=== PATIENT | female | born 1990 | race American Indian/Alaskan Native ===

== ENCOUNTER 2019-11-03 13:43 | Inpatient (IN) | payer BC ==
--- NOTE | 2019-11-03 15:00 | PCM.LDHP ---
L&D History of Present Illness - General Date of Service: 11/03/19 Admit Problem/Dx: Patient Status Order with Admit Dx/Problem 11/03/19 13:51 Patient Status [ADT] Routine Admission Diagnosis/Problem Admission Diagnosis/Problem 11/03/19 15:00 Jessica is a 29-year-old 4 para 1112 female who is admitted to labor and delivery in early labor. She has an YOUSUF of 11/20/2019 by a certain last menstrual period which started on 02/13/2019. She did however have an early ultrasound at on 04/03/2019 which placed her at 6-1/7 weeks gestational age and gave her a due date of 11/26/2019. Ultrasound dating she is 36-6/7 weeks gestational age at the time of this admission. Source of Information: Patient History Limitations: Reports: No Limitations - History of Present Illness Introduction:: Jessica is a 29-year-old 4 para 1112 female who is admitted to labor and delivery in early labor. She has an YOUSUF of 11/20/2019 by a certain last menstrual period which started on 02/13/2019. She did however have an early ultrasound at on 04/03/2019 which placed her at 6-1/7 weeks gestational age and gave her a due date of 11/26/2019. Ultrasound dating she is 36-6/7 weeks gestational age at the time of this admission.She began checo during the course of yesterday last evening. These contractions persisted and during the night of 11/02/2019 she came in to L&D for evaluation. She was irregularly checo at that time but only changed her cervix minimally throughout the course of the night and was discharged to her family's home here in [place]. As returned and was appears to be full-blown labor with contractions every 3-4 minutes, intense with patient having to breathe through them. Cervix is not changed from 2 cm to 4 cm, 80% effaced, bulging bag of garza, vertex presentation, very soft, mid position to anterior position. heart tones are reassuring. 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 Patient had menarche at age 15. Cycles every 28-30 days. Patient had a last menstrual on 02/13/2019 onset on not using any control time conception. Her previous pregnancies have included the followin. Spontaneous miscarriage 10/09/2014 at 10 weeks gestational age she with Cytotec 2. Male born 09/09/2015 at 38 weeks gestational agenormal spontaneous vaginal deliveryepidural nAgel Carmona's name is twyla. 3. Male infant born 08/26/2017 at 36 weeks gestational age after 16 hours of labor. 6 lbs. 11 oz. male born via spontaneous vaginal deliveryepidural Angel Ruvalcaba history of labor and preeclampsia 36 weeks. Child' s name is Abiel. course. Patient's initial visit was early in the at 6 weeks and 1 day at [facility]. She had an ultrasound at that time which showed her YOUSUF to be 11/26/2019. She is seen here for first visit at 16-1/7 weeks gestational age. The course of her care she has had no evidence of preeclampsia. She was started on baby aspirin to reduce risk of preeclampsia. Signs remained stable throughout her course. Her weight gain was from a pre- weight of 146 pounds to 166.4 pounds for a 20 pound increase. Fundal height growth was appropriate. Patient is group B strep negative. Platelets have been a low with evaluation most recently performed on all 24/01/2019 with a count of 124,000. Patient is desiring epidural in labor and delivery. She declined genetic evaluation. Her [place] depression screening score on 09/26/2019 was 5/30. GTT was mildly elevated at 136. Patient declined 3 hour GTT. Patient plans to breast- feed. History of preeclampsia with last resulted in recommendation and therapy with baby aspirin daily. Laboratory testing: Blood is O+ with negative screen. Initial hemoglobin was 12.9 g/dL. Platelets were 211,000. She is rubella immune. RPR is nonreactive. Hepatitis B surface antigen and HIV assays were both negative. Chlamydia and gonorrhea negative. Second trimester labs showed hemoglobin 11.3 g/dL and platelets of 151,000. Her diabetes test as reported above was 136. On 2018 and her RPR was nonreactive. Group B strep screen is negative. Allergies: Seasonal allergies only no known drug allergies. Medications: 1. Baby aspirin 81 mg by mouth daily chewable tablet 2. vitamins 1 daily 3. Ferrous sulfate 325 mg by mouth daily 4. Vitamin C-oral tablet chewable daily 5. Tylenol No. 3 when necessary for pain. Past medical history: 1. Miscarriage 1 2. 2 3. Gastroesophageal reflux disease. 4. History of preeclampsia with last 5. History of labor Past surgical history: 1. History of patent ductus arteriosusrepaired in 2001has occasional murmurs. 2. TNA 2002 3. Appendectomy 2007 4. Finger surgery 2008 5. Jaw surgery 2011 Family history: Father baby sister has Down syndrome. Father baby sister and her children are carriers for cystic fibrosis.Mother and father are alive and well. 2 brothers and 1 sister alive and well. Maternal grandmother is alive with diabetes. Maternal grandfather is alive with diabetes and parkinsonism. Paternal grandmother has a history of hypercholesterolemia. Paternal grandfather is alive with MIs 2. No bleeding, clotting, anesthesia or problems noted in the family. Social history: Patient is single. She lives in [facility]. She does not use any significant most alcohol, drugs or tobacco. Nursing nurse. Boyfriend 's name is Durga. Review of systems: Patient is making concern is increased intensity and frequency of contractions. Skin: Negative Lungs: No infectious symptoms or shortness of breath Cardiovascular: No chest pain or exercise intolerance Breasts: changes. GI: Negative : Body habitus changes associated with Musculoskeletal: Negative Neurological: Negative In general the patient is well-developed, well-nourished, pleasant female of stated age in moderate distress secondary to labor pain. Skin is warm dry without lesions. HEENT, neck and back within normal limits. Lungs are clear with good breath sounds in all lung cisneros. Cardiovascular exam shows regular and rhythm without murmurs. Abdomen is gravid with last fundal height in clinic at 36+ centimeters. Baby in vertex presentation. Genital exam per digital shows 4 cm dilated, 80% effacement, soft, -3 station, bulging bag of garza, mid position. Extremities and neurological exam are grossly within normal limits. - Related Data Allergies/Adverse Reactions: Allergies Allergy/AdvReac Type Severity Reaction Status Date / Time No Known Allergies Allergy Verified 11/02/19 21:38 Home Medications: Home Meds Acetaminophen [Tylenol] 650 mg PO 11/02/19 [History] Ascorbic Acid [Vitamin C] 1,000 mg PO 11/02/19 [History] Aspirin 81 mg PO DAILY 11/02/19 [History] Ferrous Sulfate [Iron] 325 mg 11/02/19 [History] Vits #93/Iron Fum/FA [ Formula Tablet] 11/02/19 [History] H&P Review of Systems - Review of Systems: Review Of Systems: See Below L&D Exam - Exam Exam: See Below - Vital Signs Weight: 75.296 kg Problem List Initiated/Reviewed/Updated: Yes Orders Last 24hrs: Active Orders 24 hr Category Date Time Status Patient Status [ADT] Routine ADT 11/03/19 13:51 Active Non Stress Test [RC] PER UNIT ROUTINE Care 11/03/19 13:51 Active Vital Signs [RC] PER UNIT ROUTINE Care 11/03/19 13:51 Active Resuscitation Status Routine Resus Stat 11/03/19 13:51 Ordered Assessment/Plan Comment:: 1. 36-6/7 week intrauterine by early ultrasound. Presently in active labor with advancing cervical dilation 2. Group B strep screen is negative 3. Patient plans to breast-feed 4. History of preeclampsia with previous -on baby aspirin with this 5. Thrombocytopenia with last evaluation on 10/29/2019 showing platelets of 124, 000 6. Patient had her influenza vaccination on 08/07/2019 7. T dap immunization was given on 09/26/2019. 8. Rubella titer shows immunity. 9. Patient desires analgesia in laborinitially Nubain then possibly epidural. Plan: 1. Anticipate normal spontaneous vaginal delivery 2. Nubain and/or epidural for analgesia 3. Support breast-feed decision 4. CBC and RPR upon admission
[2019-11-03] MEDS ORDERED: Ondansetron 4 MG/2 ML SDV IVPUSH PRN (15:07)
[2019-11-03] MEDS ORDERED: Nalbuphine 10 MG/ML Syringe IVPUSH PRN (15:07)
[2019-11-03] MEDS ORDERED: Sodium Chloride 0.9% 10 ML Syringe FLUSH PRN (15:07)
[2019-11-03] MEDS ORDERED: Oxytocin/Lactated Ringers 10 UNIT/1,000 ML BAG IV SCH ×2 (15:15)
[2019-11-03] MEDS: Lactated Ringers 1,000 ML IV SCH ×3 (15:24→17:35)
[2019-11-03] MEDS ORDERED: fentaNYL 100 MCG/2 ML SDV ONE (16:52)
[2019-11-03] MEDS ORDERED: ePHEDrine 50 MG/ML SDV IVPUSH PRN (17:01)
[2019-11-03] MEDS ORDERED: diphenhydrAMINE 50 MG/ML SDV IVPUSH PRN (17:01)
[2019-11-03] MEDS ORDERED: fentaNYL 100 MCG/2 ML SDV EPIDUR PRN (17:01)
[2019-11-03] MEDS ORDERED: fentaNYL/Bupivacaine/NS 2 MCG-0.125% 250 ML EPIDUR PRN (17:01)
--- NOTE | 2019-11-03 17:31 | PCM.PREANE ---
Preanesthetic Assessment - Procedure Proposed Procedure: Epidural - Anesthesia/Transfusion/Family Hx Anesthesia History: Prior Anesthesia Without Reaction Family History of Anesthesia Reaction: No Transfusion History: No Prior Transfusion(s) - Review of Systems General: Fatigue Pulmonary: No Symptoms Cardiovascular: No Symptoms Gastrointestinal: Abdominal Pain (labor) Neurological: No Symptoms Other: Reports: None - Physical Assessment Vital Signs: Last Vital Signs Temp 36.8 C 11/03/19 13:51 Pulse 90 11/03/19 13:51 Resp 18 11/03/19 13:51 BP 128/79 11/03/19 13:51 Pulse Ox 96 11/03/19 13:51 Height: 1.63 m Weight: 75.296 kg ASA Class: 2 Mental Status: Alert & Oriented x3 Airway Class: Mallampati = 1 Dentition: Reports: Normal Dentition Thyro-Mental Finger Breadths: 3 Mouth Opening Finger Breadths: 3 ROM/Head Extension: Full Lungs: Clear to Auscultation, Normal Respiratory Effort Cardiovascular: Regular Rate, Regular Rhythm - Allergies Allergies/Adverse Reactions: Allergies Allergy/AdvReac Type Severity Reaction Status Date / Time No Known Allergies Allergy Verified 11/03/19 15:16 - Anesthesia Plan Pre-Op Medication Ordered: None - Acknowledgements Anesthesia Type Planned: Epidural Pt an Appropriate Candidate for the Planned Anesthesia: Yes Alternatives and Risks of Anesthesia Discussed w Pt/Guardian: Yes Pt/Guardian Understands and Agrees with Anesthesia Plan: Yes PreAnesthesia Questionnaire - Past Health History Medical/Surgical History: Denies Medical/Surgical History Gastrointestinal History: Reports: [employer] History: Reports: , Spontaneous - Past Surgical History HEENT Surgical History: Reports: Adenoidectomy, Oral Surgery, Tonsillectomy Other HEENT Surgeries/Procedures: Cyst removal from jaw Cardiovascular Surgical History: Reports: Other (See Below) Other Cardiovascular Surgeries/Procedures: PDA fixed with a stent at "12 or 13 years old" GI Surgical History: Reports: Appendectomy Musculoskeletal Surgical History: Reports: Other (See Below) Other Musculoskeletal Surgeries/Procedures:: cyst removal from finger - SUBSTANCE USE Smoking Status *Q: Former Smoker Second Hand Smoke Exposure: No Recreational Drug Use History: No - HOME MEDS Home Medications: Home Meds Acetaminophen [Tylenol] 650 mg PO DAILY 11/02/19 [History] Ascorbic Acid [Vitamin C] 1,000 mg PO DAILY 11/02/19 [History] Aspirin 81 mg PO DAILY 11/02/19 [History] Ferrous Sulfate [Iron] 325 mg PO DAILY 11/02/19 [History] Vits #93/Iron Fum/FA [ Formula Tablet] 1 tab PO DAILY 11/02/19 [History] - CURRENT (IN HOUSE) MEDS Current Meds: Current Medications Diphenhydramine HCl (Benadryl) 25 mg IVPUSH Q6H PRN PRN Reason: Itching Ephedrine Sulfate (Ephedrine Sulfate) 5 mg IVPUSH ASDIRECTED PRN PRN Reason: HYPOTENTSION Fentanyl (Sublimaze) 100 mcg EPIDUR Q3H PRN PRN Reason: Pain Last Admin: 11/03/19 17:07 Dose: 100 mcg Fentanyl/Bupivacaine HCl (Fentanyl/Bupivacaine/Ns 2 Mcg-0.125% 250 Ml) 250 ml EPIDUR CONTINUOUS PRN PRN Reason: Pain Last Admin: 11/03/19 17:14 Dose: 250 ml Lactated Ringer's (Ringers, Lactated) 1,000 mls @ 100 mls/hr IV ASDIRECTED LUIS Last Admin: 11/03/19 16:44 Dose: 100 mls/hr Oxytocin/Lactated Ringer's (Pitocin In Lr 10 Units/1,000 Ml) 10 unit in 1,000 mls @ 12 mls/hr IV TITRATE LUIS; Protocol Oxytocin/Lactated Ringer's (Pitocin In Lr 10 Units/1,000 Ml) 10 unit in 1,000 mls @ 500 mls/hr IV .CONTINUOUS LUIS Nalbuphine HCl (Nubain) 10 mg IVPUSH Q2H PRN PRN Reason: Pain Last Admin: 11/03/19 15:24 Dose: 10 mg Ondansetron HCl (Zofran) 4 mg IVPUSH Q4H PRN PRN Reason: Nausea/Vomiting Sodium Chloride (Saline Flush) 10 ml FLUSH ASDIRECTED PRN PRN Reason: Keep Vein Open Discontinued Medications Fentanyl (Sublimaze) Confirm Administered Dose 100 mcg .ROUTE .STK-MED ONE Stop: 11/03/19 16:53 Last Admin: 11/03/19 17:08 Dose: Not Given
--- NOTE | 2019-11-03 21:12 | PCM.SN ---
- Free Text/Narrative Note: Delivery note: Jessica is a 29-year-old 4 para 1112 female who is admitted to labor and delivery in early labor. She has an YOUSUF of 11/20/2019 by a certain last menstrual period which started on 02/13/2019. She did however have an early ultrasound at on 04/03/2019 which placed her at 6-1/7 weeks gestational age and gave her a due date of 11/26/2019. Ultrasound dating she is 36-6/7 weeks gestational age at the time of this admission.She made good progress and became completely dilated at approximately 2030 hrs. on 10/26/2019. She had an epidural placed for labor analgesia. Amniotic fluid was clear. Patient has spontaneous rupture membranes. Patient pushed for approximately 2 contractions and delivered a viable, cortez, male infant with Apgars of 8 and 9, a weight of 3390 g (7 pounds 7.6 ounces), a length of 20.0 inches in a right occiput anterior position. Delivery was at 2046 hrs. on 11/03/2019. There was a nuchal/shoulder cord 1- loose-reduced over the baby's body. Perineum was intact. Small superficial abrasions were noted. These were not repaired as there was no anatomic distortion or bleeding noted. Baby was placed on mom's abdomen. Nose and mouth were bulb suctioned. IV Pitocin was started at 500 mL an hour with 10 units/L concentration. This to facilitate increase uterine tone and decrease likelihood of bleeding. Cord was allowed pulsate for approximately 2 minutes and then was clamped 2 and cut by the baby's father. Cord blood was obtained. The umbilical cord had 3 vessels. The placenta delivered in a Jenkins presentation at 1 hrs., appeared intact and complete and was discarded per patient desire. The blood loss was 100 mL. Patient plans to breast-feed. Condition: Good
[2019-11-03] MEDS ORDERED: Benzocaine/Menthol 20%-0.5% Spray 56 GM Canister TOP PRN (21:30)
[2019-11-03] MEDS ORDERED: Acetaminophen 325 MG Tab PO PRN (21:30)
[2019-11-03] MEDS ORDERED: Witch Hazel Medicated Pads 40/Jar TOP PRN (21:30)
[2019-11-03] MEDS ORDERED: Docusate Sodium 100 MG Cap PO PRN (21:30)
[2019-11-03] MEDS: Ibuprofen 600 MG Tab PO PRN (21:35)
[2019-11-04] MEDS: Ibuprofen 600 MG Tab PO PRN ×4 (01:45→20:11)
[2019-11-04] MEDS ORDERED: Prenatal Multivitamin with Calcium/Folic Acid/Iron Tab PO SCH (09:00)
--- NOTE | 2019-11-04 09:37 | PCM.DCSUM1 ---
Discharge Summary - Hospital Course Free Text/Narrative:: Jessica is a 29-year-old 4 para 1112 female who is admitted to labor and delivery in early labor. She has an YOUSUF of 11/20/2019 by a certain last menstrual period which started on 02/13/2019. She did however have an early ultrasound at on 04/03/2019 which placed her at 6-1/7 weeks gestational age and gave her a due date of 11/26/2019. Ultrasound dating she is 36-6/7 weeks gestational age at the time of this admission.She made good progress and became completely dilated at approximately 2030 hrs. on 10/26/2019. She had an epidural placed for labor analgesia. Amniotic fluid was clear. Patient has spontaneous rupture membranes. Patient pushed for approximately 2 contractions and delivered a viable, cortez, male infant with Apgars of 8 and 9, a weight of 3390 g (7 pounds 7.6 ounces), a length of 20.0 inches in a right occiput anterior position. Delivery was at 2046 hrs. on 11/03/2019. There was a nuchal/shoulder cord 1- loose-reduced over the baby's body. Perineum was intact. Small superficial abrasions were noted. These were not repaired as there was no anatomic distortion or bleeding noted. Baby was placed on mom's abdomen. Nose and mouth were bulb suctioned. IV Pitocin was started at 500 mL an hour with 10 units/L concentration. This to facilitate increase uterine tone and decrease likelihood of bleeding. Cord was allowed pulsate for approximately 2 minutes and then was clamped 2 and cut by the baby's father. Cord blood was obtained. The umbilical cord had 3 vessels. The placenta delivered in a Jenkins presentation at 1 hrs., appeared intact and complete and was discarded per patient desire. The blood loss was 100 mL. Patient plans to breast-feed. patient is doing very well. She is voiding without problems, ambulating well, has minimal lochia and is nursing without concerns. She is desiring discharge home. Condition: Good Diagnosis: Stroke: No - Discharge Data Discharge Date: 11/04/19 Discharge Disposition: Home, Self-Care 01 Condition: Good - Referral to Home Health Primary Care Physician: Grant Aguilar MD - Patient Instructions Diet: Regular Diet as Tolerated (Nursing diet with increased calories and calcium as recommended) Activity: As Tolerated (No intercourse or tampons until bleeding results) Driving: May Drive Today Showering/Bathing: May Shower Notify Provider of: Fever, Increased Pain, Swelling and Redness, Nausea and/or Vomiting - Discharge Plan Home Medications: Home Meds Ascorbic Acid [Vitamin C] 1,000 mg PO DAILY 11/02/19 [History] Aspirin 81 mg PO DAILY 11/02/19 [History] Ferrous Sulfate [Iron] 325 mg PO DAILY 11/02/19 [History] Vits #93/Iron Fum/FA [ Formula Tablet] 1 tab PO DAILY 11/02/19 [History] Acetaminophen [Tylenol] 650 mg PO Q4H PRN tablet 11/04/19 [Rx] Ibuprofen [Motrin] 600 mg PO Q4H PRN tablet 11/04/19 [Rx] Oxygen Therapy Mode: Trans-tracheal Oxygen Referrals: Grant Aguilar MD [Primary Care Provider] - (Return to clinicDr. Aguilar2 weeks.) - Discharge Summary/Plan Comment DC Time >30 min.: No Discharge Summary/Plan Comment: Discharge instructions: 1. Discharge home 2. Diet, activity and follow-up discussed with patient. Recommend nursing diet with increased calories and calcium. 3. Precautions given concern increased pain, bleeding, temperature, signs/ symptoms of DVT/PE. 4. Medications per home medication was printed, discussed with and given to the patient. 5. Return to clinic-Dr. Aguilar-[facility] [place] in 2 weeks. Diagnosis: Term -delivered Condition: Good - Patient Data Vitals - Most Recent: Last Vital Signs Temp 36.2 C 11/04/19 04:32 Pulse 70 11/04/19 04:32 Resp 14 11/04/19 04:32 BP 122/66 11/04/19 04:32 Pulse Ox 97 11/04/19 04:32 Weight - Most Recent: 75.296 kg I&O - Last 24 hours: Intake & Output 11/03/19 11/04/19 11/04/19 22:59 06:59 14:59 Intake Total 3400 Balance 3400 Med Orders - Current: Current Medications Acetaminophen (Tylenol) 650 mg PO Q4H PRN PRN Reason: mild pain or fever Last Admin: 11/04/19 09:04 Dose: 650 mg Benzocaine/Menthol (Dermoplast Pain Relief [place]) 0 gm TOP ASDIRECTED PRN PRN Reason: Perineal Comfort Measure Docusate Sodium (Colace) 100 mg PO BID PRN PRN Reason: Constipation Ibuprofen (Motrin) 600 mg PO Q4H PRN PRN Reason: Mild pain or fever Last Admin: 11/04/19 05:56 Dose: 600 mg Prenat Multivit/Forwarder Operator/Iron/Folic Ac ( Plus Iron) 1 each PO DAILY LUIS Last Admin: 11/04/19 09:03 Dose: 1 each Witch Arlet (Tucks) 1 pad TOP ASDIRECTED PRN PRN Reason: Pain Discontinued Medications Diphenhydramine HCl (Benadryl) 25 mg IVPUSH Q6H PRN PRN Reason: Itching Ephedrine Sulfate (Ephedrine Sulfate) 5 mg IVPUSH ASDIRECTED PRN PRN Reason: HYPOTENTSION Fentanyl (Sublimaze) Confirm Administered Dose 100 mcg .ROUTE .[facility] ONE Stop: 11/03/19 16:53 Last Admin: 11/03/19 17:08 Dose: Not Given Fentanyl (Sublimaze) 100 mcg EPIDUR Q3H PRN PRN Reason: Pain Last Admin: 11/03/19 17:07 Dose: 100 mcg Fentanyl/Bupivacaine HCl (Fentanyl/Bupivacaine/Ns 2 Mcg-0.125% 250 Ml) 250 ml EPIDUR CONTINUOUS PRN PRN Reason: Pain Last Admin: 11/03/19 17:14 Dose: 250 ml Lactated Ringer's (Ringers, Lactated) 1,000 mls @ 100 mls/hr IV ASDIRECTED LUIS Last Admin: 11/03/19 17:35 Dose: 100 mls/hr Oxytocin/Lactated Ringer's (Pitocin In Lr 10 Units/1,000 Ml) 10 unit in 1,000 mls @ 12 mls/hr IV TITRATE LUIS; Protocol Oxytocin/Lactated Ringer's (Pitocin In Lr 10 Units/1,000 Ml) 10 unit in 1,000 mls @ 500 mls/hr IV .CONTINUOUS LUIS Last Admin: 11/03/19 20:47 Dose: 500 mls/hr Nalbuphine HCl (Nubain) 10 mg IVPUSH Q2H PRN PRN Reason: Pain Last Admin: 11/03/19 15:24 Dose: 10 mg Ondansetron HCl (Zofran) 4 mg IVPUSH Q4H PRN PRN Reason: Nausea/Vomiting Sodium Chloride (Saline Flush) 10 ml FLUSH ASDIRECTED PRN PRN Reason: Keep Vein Open
--- NOTE | 2019-11-04 12:30 | PCM48HPAN ---
Post Anesthesia Note - EVALUATION WITHIN 48HRS OF ANESTHETIC Vital Signs in Normal Range: Yes Patient Participated in Evaluation: Yes Respiratory Function Stable: Yes Airway Patent: Yes Cardiovascular Function Stable: Yes Hydration Status Stable: Yes Pain Control Satisfactory: Yes Nausea and Vomiting Control Satisfactory: Yes Mental Status Recovered: Yes Vital Signs: Last Vital Signs Temp 36.2 C 11/04/19 04:32 Pulse 70 11/04/19 04:32 Resp 14 11/04/19 04:32 BP 122/66 11/04/19 04:32 Pulse Ox 97 11/04/19 04:32 - COMMENTS/OBSERVATIONS Free Text/Narrative:: no anesthesia complications noted
[2019-11-05] MEDS ORDERED: Bupivacaine 0.25% 10 ML SDV ONE
[2019-11-05] MEDS: Ibuprofen 600 MG Tab PO PRN (02:15)
== END 2019-11-05 09:20 | disposition home or self-care (01) | DRG 560 ==
LOC: JD.OBCHECK 13:43 → JD.OB 13:43 → JD.OBCHECK 15:12 → JD.OB 20:46 → OBSVTOIN 20:46
PROVIDERS: ADMIT Obstetrics & Gynecology; ATTEND Obstetrics & Gynecology
PROC: 10E0XZZ Delivery of Products of Conception, External Approach (ICD-10-PCS; principal; 2019-11-03)
DX: O99.12 Other diseases of the blood and blood-forming organs and certain disorders involving the immune mechanism complicating childbirth (principal); D69.6 Thrombocytopenia, unspecified; Z3A.36 36 weeks gestation of pregnancy; Z37.0 Single live birth; O69.81X0 Labor and delivery complicated by cord around neck, without compression, not applicable or unspecified; Z87.891 Personal history of nicotine dependence
CPT/HCPCS: 01967; 51702; 59025; 59409; A9270-GY; J2300; J2590; J3010; J3490; J7120

== ENCOUNTER 2021-05-30 09:09 | Inpatient (IN) | payer OTHER ==
[2021-05-30] MEDS ORDERED: Ondansetron 4 MG/2 ML SDV IVPUSH PRN (10:54)
[2021-05-30] MEDS ORDERED: Nalbuphine 10 MG/1 ML Vial IVPUSH PRN (10:54)
[2021-05-30] MEDS ORDERED: Sodium Chloride 0.9% 10 ML Syringe FLUSH PRN (10:54)
[2021-05-30] MEDS ORDERED: Calcium Carbonate 500 MG Tab.Chew PO PRN (10:54)
[2021-05-30] MEDS ORDERED: Oxytocin/Lactated Ringers 10 UNIT/1,000 ML BAG IV SCH ×2 (11:00→15:15)
--- NOTE | 2021-05-30 12:32 | PCM.PREANE ---
Preanesthetic Assessment - Procedure Proposed Procedure: Continuos labor epidural - Anesthesia/Transfusion/Family Hx Anesthesia History: Prior Anesthesia Without Reaction Transfusion History: No Prior Transfusion(s) - Review of Systems General: No Symptoms Pulmonary: No Symptoms Cardiovascular: No Symptoms Gastrointestinal: No Symptoms Neurological: No Symptoms Other: Reports: None - Physical Assessment NPO Status Date: 05/30/21 NPO Status Time: 10:00 Vital Signs: Last Vital Signs Temp 97.3 F 05/30/21 09:11 Pulse 85 05/30/21 09:11 Resp 16 05/30/21 09:11 BP 124/77 05/30/21 09:11 Pulse Ox 100 05/30/21 09:11 Height: 1.63 m Weight: 75.432 kg ASA Class: 2 Mental Status: Alert & Oriented x3 Dentition: Reports: Normal Dentition Thyro-Mental Finger Breadths: 3 Mouth Opening Finger Breadths: 3 ROM/Head Extension: Full Lungs: Clear to Auscultation, Normal Respiratory Effort Cardiovascular: Regular Rate, Regular Rhythm - Lab Values: Laboratory Last Values WBC 9.69 K/mm3 (3.98-10.04) 05/30/21 11:16 RBC 4.10 M/mm3 (3.98-5.22) 05/30/21 11:16 Hgb 13.7 gm/dl (11.2-15.7) D 05/30/21 11:16 Hct 40.2 % (34.1-44.9) 05/30/21 11:16 MCV 98.0 fl (79.4-94.8) H 05/30/21 11:16 MCH 33.4 pg (25.6-32.2) H 05/30/21 11:16 MCHC 34.1 g/dl (32.2-35.5) 05/30/21 11:16 RDW Std Deviation 48.8 fL (36.4-46.3) H 05/30/21 11:16 Plt Count 134 K/mm3 (182-369) L 05/30/21 11:16 MPV 10.7 fl (9.4-12.3) 05/30/21 11:16 Neut % (Auto) 72.7 % (34.0-71.1) H 05/30/21 11:16 Lymph % (Auto) 18.3 % (19.3-51.7) L 05/30/21 11:16 [place] % (Auto) 6.7 % (4.7-12.5) 05/30/21 11:16 Eos % (Auto) 1.1 (0.7-5.8) 05/30/21 11:16 Baso % (Auto) 0.2 % (0.1-1.2) 05/30/21 11:16 Neut # (Auto) 7.04 K/mm3 (1.56-6.13) H 05/30/21 11:16 Lymph # (Auto) 1.77 K/mm3 (1.18-3.74) 05/30/21 11:16 [place] # (Auto) 0.65 K/mm3 (0.24-0.36) H 05/30/21 11:16 Eos # (Auto) 0.11 K/mm3 (0.04-0.36) 05/30/21 11:16 Baso # (Auto) 0.02 K/mm3 (0.01-0.08) 05/30/21 11:16 SARS-CoV-2 RNA (MARVA) Negative (NEGATIVE) 05/30/21 10:50 Blood Type O POSITIVE 05/30/21 11:16 Gel Antibody Screen Negative 05/30/21 11:16 - Allergies Allergies/Adverse Reactions: Allergies Allergy/AdvReac Type Severity Reaction Status Date / Time No Known Allergies Allergy Verified 05/30/21 09:17 - Acknowledgements Anesthesia Type Planned: Epidural Pt an Appropriate Candidate for the Planned Anesthesia: Yes Alternatives and Risks of Anesthesia Discussed w Pt/Guardian: Yes Pt/Guardian Understands and Agrees with Anesthesia Plan: Yes PreAnesthesia Questionnaire - Past Health History Medical/Surgical History: Denies Medical/Surgical History Cardiovascular History: Reports: Heart Murmur Gastrointestinal History: Reports: GERD LAB ASSOCIATE History: Reports: , Spontaneous , Other (See Below) Other OB/BYN History: abnormal pap with HPV Endocrine/Metabolic History: Reports: Diabetes, Gestational Hematologic History: Reports: Anemia - Infectious Disease History Infectious Disease History: Reports: Chicken Pox - Past Surgical History HEENT Surgical History: Reports: Adenoidectomy, Oral Surgery, Tonsillectomy Other HEENT Surgeries/Procedures: Cyst removal from jaw Cardiovascular Surgical History: Reports: Other (See Below) Other Cardiovascular Surgeries/Procedures: PDA fixed with a stent at "12 or 13 years old" GI Surgical History: Reports: Appendectomy Musculoskeletal Surgical History: Reports: Other (See Below) Other Musculoskeletal Surgeries/Procedures:: cyst removal from finger - SUBSTANCE USE Tobacco Use Status *Q: Never Tobacco User Recreational Drug Use History: No - HOME MEDS Home Medications: Home Meds Ascorbic Acid [Vitamin C] 1,000 mg PO DAILY 11/02/19 [History] Aspirin 81 mg PO DAILY 11/02/19 [History] Ferrous Sulfate [Iron] 325 mg PO DAILY 11/02/19 [History] Vits #93/Iron Fum/FA [ Formula Tablet] 1 tab PO DAILY 11/02/19 [History] - CURRENT (IN HOUSE) MEDS Current Meds: Current Medications Calcium Carbonate/Glycine (Calcium Carbonate 500 Mg Tab.Chew) 1,000 mg PO Q2H PRN PRN Reason: Indigestion Lactated Ringer's (Ringers, Lactated) 1,000 mls @ 100 mls/hr IV ASDIRECTED LUIS Oxytocin/Lactated Ringer's (Pitocin In Lr 10 Units/1,000 Ml) 10 unit in 1,000 mls @ 500 mls/hr IV .CONTINUOUS LUIS Nalbuphine HCl (Nalbuphine 10 Mg/1 Ml Vial) 10 mg IVPUSH Q2H PRN PRN Reason: Pain Ondansetron HCl (Ondansetron 4 Mg/2 Ml Sdv) 4 mg IVPUSH Q4H PRN PRN Reason: Nausea/Vomiting Sodium Chloride (Sodium Chloride 0.9% 10 Ml Syringe) 10 ml FLUSH ASDIRECTED PRN PRN Reason: Keep Vein Open
[2021-05-30] MEDS ORDERED: diphenhydrAMINE 50 MG/ML SDV IVPUSH PRN (12:35)
[2021-05-30] MEDS ORDERED: fentaNYL 100 MCG/2 ML SDV EPIDUR PRN (12:35)
[2021-05-30] MEDS ORDERED: Bupivacaine/fentaNYL/NS 100 ML Bag EPIDUR PRN (12:35)
[2021-05-30] MEDS ORDERED: ePHEDrine 50 MG/ML SDV IVPUSH PRN (12:35)
[2021-05-30] MEDS ORDERED: Lidocaine 1.5% with EPINEPHrine 1:200,000 5 ML Amp ONE (14:00)
[2021-05-30] MEDS: Lactated Ringers 1,000 ML IV SCH ×3 (15:28→20:55)
--- NOTE | 2021-05-30 16:42 | PCM.LDHP ---
L&D History of Present Illness - General Date of Service: 05/30/21 Admit Problem/Dx: Patient Status Order with Admit Dx/Problem 05/30/21 09:11 Patient Status [ADT] Routine 05/30/21 10:54 Patient Status [ADT] Routine Admission Diagnosis/Problem Admission Diagnosis/Problem 05/30/21 16:28 Jessica Martines" is a 31-year-old 5 para 2-1-1-3 female at 38-0/7 weeks gestational age with an YOUSUF of 06/13/2021 admitted at midday on 05/30/2021 in active early labor with progression of cervical dilation. Source of Information: Patient History Limitations: Reports: No Limitations - History of Present Illness Introduction:: Jessica Martines" is a 31-year-old 5 para 2-1-1-3 female at 38-0/7 weeks gestational age with an YOUSUF of 06/13/2021 admitted at midday on 05/30/2021 in active early labor with progression of cervical dilation. Shortly after admission patient reported a small gush of fluid and has been continuously leaking clear amniotic fluid since that time. Initial cervical evaluation was consistent with 3 cm proximal 80% effaced, soft, mid position, -3 station and cephalic presentation. This is a change from her last evaluation clinic when she was 2 cm and 80%. She is checo every 3 to 4 minutes, mild to moderate in intensity. It appears like she is in early labor with SROM. [employer]IC history: 5 para 2-1-1-3. Patient had menarche at age 14. Cycles q. months. Certain last menstrual period started 09/06/2020 given an YOUSUF of 06/13/2021. These dates are supported by 2 ultrasounds done at 10-2/7 weeks and 20-3/7 weeks. Patient is not using any control at the time of conception. She has regular menstrual cycles that are normal in nature. Past obstetric experience includes the followin. [id number] weeks [id number]/3/2014-assisted with Cytotec admi nistration 2. Male infant born 09/09/2013 at 38 weeks - 8 hours of labor7 pounds 15 ouncesNSVDepidural usedBrayan Mathew's name is Cat 3. Male born 08/26/2017 at 36 weeks [id number] hours of labor6 pounds 11 ouncesNSVDepidural usedSidnlyn Martanapreterm labor noted. Patient had preeclampsia at 36 weeks. Child's name is Abiel Mcmanus. Male infant born 11/03/2019 at 37-4/7 weeks gestational-7 pounds 7 ouncesNSVDepidural usedDash [place]'s name is Durga [place] course: First visit was on 11/20/2020 at 10-5/7 weeks gestational age. Patient was seen on a very regular basis throughout the course. Her weight gain was from 143 to 165 pounds for a 22 pound increase. Patient desires epidural in labor. She is group B strep negative. She has risk factors of preeclampsia with third , labor with second , and miscarriage, distance from the hospital, gestational diabetes with this . Patient was Covid positive in September 2020. She recovered and had no ill effects from this. She declined Tdap. He had somewhat decreased platelet count from normal on 20-week evaluation. She is mildly anemic and was started on ferrous sulfate 3 and 25 mg p.o. daily her gestational diabetes has been diet controlled with good blood sugar evaluations. Patient is rubella immune. Hepatitis B immunizations were given in 2004. Meningococcal immunization was given in 2008. Laboratory testing shows blood to be O+ with a negative [place] screen. First adonis hemoglobin was 14.8 g/dL and platelets are 203,000. She is rubella immune. RPR is nonreactive. Urine culture was negative. HIV was negative. Chlamydia and gonorrhea were both negative. TSH 11/11/2020 was normal at 1.896 mg/mL. Second trimester labs showed a hemoglobin 11.4 g/dL and platelets at 144,000. 1 hour glucose was high at 172. Her 3-hour glucose was as follows: 84 mg/dL at fasting, 194 mg/dL at 1 hour, 162 mg/dL at 2 hours and 153 mg/dL at 3 hours. This result is consistent with gestational diabetes. Repeat CBC on 05/19/2021 showed a hemoglobin 11.8 and platelets at 124,000 RPR on 03/09/2021 was negative. Group B strep screen was negative. Allergies: Seasonal allergies only. No known drug allergies. Medications: 1. Aspirin low-dose 81 mg/day because of past history of preeclampsia in . 2. vitamins daily. 3. Vitamin C oral tablet chewable daily 4. Ferrous sulfate 325 mg (6 mg of iron) tablets daily 5. Zyrtec [id number] allergy tablets daily. Past medical history: 1. x3 with one being 2. Miscarriage x1 treated with Cytotec 3. GERD with questionable stomach ulcer in the past 4. High blood pressure third 5. Patient born with patent ductus arteriosusrepaired in 2001occasional murmur persists 6. Abnormal Pap smear 2013 no intervention Past surgical history: 1. PDA repair 2001 2. T&A in 2002 3. Appendectomy 2007 4. Finger surgery 2008 5. Jaw surgery in 2011. Review of systems: In general patient has no complaints. Patient reports contractions upon admission and shortly thereafter loss of clear vaginal fluid. Baby has been active. Skin: Negative Lungs: No infectious symptoms or shortness of breath Cardiovascular: No chest pain or exercise intolerance Breasts: No lumps, changes in size, pain, dimpling, discharge or axillary or supraclavicular concerns. GI: Negative : Body habitus changes consistent with Musculoskeletal: Negative Neurological: Negative Physical exam: In general the patient is well-developed, well-nourished, pleasant female of stated age in no acute distress. On last evaluation clinic on 05/25/2021 blood pressure is 132/70. Weight was 165 with a pregravid weight of 143. Height is 5 feet 4 inches. Pregravid BMI was 22.7. Skin is warm dry without lesions. HEENT, neck and back within normal limits. Lungs are clear with good breath sounds in all lung cisneros. Cardiovascular exam shows regular and rhythm without murmurs. Breast exam deferred at this time. No abnormalities noted. Patient plans to breast-feed. Abdomen is gravid with with last fundal height clinic on 05/25/2021 at 37 cmconsistent with dates.. Genital per digital exam shows 3 cm, 80% effaced, soft, mid position, -3. Extremities and neurological exam are grossly within normal limits. - Related Data Allergies/Adverse Reactions: Allergies Allergy/AdvReac Type Severity Reaction Status Date / Time No Known Allergies Allergy Verified 05/30/21 09:17 Home Medications: Home Meds Ascorbic Acid [Vitamin C] 1,000 mg PO DAILY 11/02/19 [History] Aspirin 81 mg PO DAILY 11/02/19 [History] Ferrous Sulfate [Iron] 325 mg PO DAILY 11/02/19 [History] Vits #93/Iron Fum/FA [ Formula Tablet] 1 tab PO DAILY 11/02/19 [History] Past Medical History - Past Health History Medical/Surgical History: Denies Medical/Surgical History Cardiovascular History: Reports: Heart Murmur Gastrointestinal History: Reports: GERD [employer]IC History: Reports: , Spontaneous , Other (See Below) Other OB/BYN History: abnormal pap with HPV Endocrine/Metabolic History: Reports: Diabetes, Gestational Hematologic History: Reports: Anemia - Infectious Disease History Infectious Disease History: Reports: Chicken Pox - Past Surgical History HEENT Surgical History: Reports: Adenoidectomy, Oral Surgery, Tonsillectomy Other HEENT Surgeries/Procedures: Cyst removal from jaw Cardiovascular Surgical History: Reports: Other (See Below) Other Cardiovascular Surgeries/Procedures: PDA fixed with a stent at "12 or 13 years old" GI Surgical History: Reports: Appendectomy Musculoskeletal Surgical History: Reports: Other (See Below) Other Musculoskeletal Surgeries/Procedures:: cyst removal from finger Social & Family History - Family History Family Medical History: No Pertinent Family History - Tobacco Use Tobacco Use Status *Q: Never Tobacco User - Caffeine Use Caffeine Use: Reports: None - Recreational Drug Use Recreational Drug Use: No H&P Review of Systems - Review of Systems: Review Of Systems: See Below L&D Exam - Exam Exam: See Below - Vital Signs Vital Signs: Last Vital Signs Temp 36.3 C 05/30/21 09:11 Pulse 85 05/30/21 09:11 Resp 16 05/30/21 09:11 BP 124/77 05/30/21 09:11 Pulse Ox 100 05/30/21 09:11 Weight: 75.432 kg - Patient Data Lab Results Last 24 hrs: Laboratory Results - last 24 hr 05/30/21 05/30/21 05/30/21 Range/Units 10:50 11:16 11:16 WBC 9.69 (3.98-10.04) K/mm3 RBC 4.10 (3.98-5.22) M/mm3 Hgb 13.7 D (11.2-15.7) gm/dl Hct 40.2 (34.1-44.9) % MCV 98.0 H (79.4-94.8) fl MCH 33.4 H (25.6-32.2) pg MCHC 34.1 (32.2-35.5) g/dl RDW Std Deviation 48.8 H (36.4-46.3) fL Plt Count 134 L (182-369) K/mm3 MPV 10.7 (9.4-12.3) fl Neut % (Auto) 72.7 H (34.0-71.1) % Lymph % (Auto) 18.3 L (19.3-51.7) % [place] % (Auto) 6.7 (4.7-12.5) % Eos % (Auto) 1.1 (0.7-5.8) Baso % (Auto) 0.2 (0.1-1.2) % Neut # (Auto) 7.04 H (1.56-6.13) K/mm3 Lymph # (Auto) 1.77 (1.18-3.74) K/mm3 [place] # (Auto) 0.65 H (0.24-0.36) K/mm3 Eos # (Auto) 0.11 (0.04-0.36) K/mm3 Baso # (Auto) 0.02 (0.01-0.08) K/mm3 RPR Non-reactive (NONREACTIVE) SARS-CoV-2 RNA (MARVA) Negative (NEGATIVE) Blood Type Gel Antibody Screen 05/30/21 Range/Units 11:16 WBC (3.98-10.04) K/mm3 RBC (3.98-5.22) M/mm3 Hgb (11.2-15.7) gm/dl Hct (34.1-44.9) % MCV (79.4-94.8) fl MCH (25.6-32.2) pg MCHC (32.2-35.5) g/dl RDW Std Deviation (36.4-46.3) fL Plt Count (182-369) K/mm3 MPV (9.4-12.3) fl Neut % (Auto) (34.0-71.1) % Lymph % (Auto) (19.3-51.7) % [place] % (Auto) (4.7-12.5) % Eos % (Auto) (0.7-5.8) Baso % (Auto) (0.1-1.2) % Neut # (Auto) (1.56-6.13) K/mm3 Lymph # (Auto) (1.18-3.74) K/mm3 [place] # (Auto) (0.24-0.36) K/mm3 Eos # (Auto) (0.04-0.36) K/mm3 Baso # (Auto) (0.01-0.08) K/mm3 RPR (NONREACTIVE) SARS-CoV-2 RNA (MARVA) (NEGATIVE) Blood Type O POSITIVE Gel Antibody Screen Negative Result Diagrams: 05/30/21 11:16 - Problem List (1) 38 weeks gestation of SNOMED Code(s): 99929658 ICD Code: Z3A.38 - 38 WEEKS GESTATION OF Status: Acute Current Visit: Yes (2) History of pre-eclampsia SNOMED Code(s): 270029252296367 ICD Code: Z87.59 - PERSONAL HISTORY OF COMP OF PREG, CHLDBRTH AND THE PUERP Status: Acute Current Visit: Yes (3) History of delivery SNOMED Code(s): 460289956 ICD Code: Z87.51 - PERSONAL HISTORY OF PRE-TERM LABOR Status: Acute Current Visit: Yes (4) Thrombocytopenia SNOMED Code(s): 745686545 ICD Code: D69.6 - THROMBOCYTOPENIA, UNSPECIFIED Status: Acute Current Visit: Yes Problem List Initiated/Reviewed/Updated: Yes Orders Last 24hrs: Active Orders 24 hr Category Date Time Status Patient Status [ADT] Routine ADT 05/30/21 10:54 Active Activity as Tolerated [RC] PFP Care 05/30/21 10:54 Active Communication Order [RC] ASDIRECTED Care 05/30/21 10:54 Active Heart Tones [RC] ASDIRECTED Care 05/30/21 10:54 Active Non Stress Test [RC] PER UNIT ROUTINE Care 05/30/21 09:11 Active Notify Provider [RC] ASDIRECTED Care 05/30/21 12:35 Active Notify Provider [RC] PFP Care 05/30/21 10:54 Active Notify Provider [RC] PRN Care 05/30/21 10:54 Active Peripheral IV Care [RC] . DIRECTED Care 05/30/21 10:54 Active Vital Signs [RC] PER UNIT ROUTINE Care 05/30/21 09:11 Active Regular Diet [DIET] Diet 05/30/21 Lunch Active PATIENT RETYPE [BBK] Routine Lab 05/30/21 11:46 Ordered Bupivacaine/fentaNYL/NS [fentaNYL/Bupivacaine/NS 2 MCG- Med 05/30/21 12:35 Active 0.125% 100 ML] 100 ml EPIDUR ASDIRECTED PRN Calcium Carbonate [Tums] Med 05/30/21 10:54 Active 1,000 mg PO Q2H PRN Lactated Ringers [Ringers, Lactated] 1,000 ml Med 05/30/21 11:00 Active IV ASDIRECTED Nalbuphine [Nubain] Med 05/30/21 10:54 Active 10 mg IVPUSH Q2H PRN Ondansetron [Zofran] Med 05/30/21 10:54 Active 4 mg IVPUSH Q4H PRN Oxytocin/Lactated Ringers [Pitocin in LR 10 Units/1,000 Med 05/30/21 11:00 Active ML] 10 unit in 1,000 ml IV .CONTINUOUS Oxytocin/Lactated Ringers [Pitocin in LR 10 Units/1,000 Med 05/30/21 15:15 Active ML] 10 unit in 1,000 ml IV TITRATE Sodium Chloride 0.9% [Saline Flush] Med 05/30/21 10:54 Active 10 ml FLUSH ASDIRECTED PRN diphenhydrAMINE [Benadryl] Med 05/30/21 12:35 Active 25 mg IVPUSH Q6H PRN ePHEDrine [ePHEDrine sulfate] Med 05/30/21 12:35 Active 5 mg IVPUSH ASDIRECTED PRN fentaNYL [Sublimaze] Med 05/30/21 12:35 Active 100 mcg EPIDUR Q3H PRN Electronic Heart Tones Ext w TOCO [WOMSER] Oth 05/30/21 10:54 Ordered Routine Electronic Heart Tones Internal [WOMSER] Per Unit Oth 05/30/21 10:54 Ordered Routine Peripheral IV Insertion Adult [OM.PC] Routine Oth 05/30/21 10:54 Ordered Resuscitation Status Routine Resus Stat 05/30/21 09:11 Ordered Medication Orders Calcium Carbonate/Glycine (Calcium Carbonate 500 Mg Tab.Chew) 1,000 mg PO Q2H PRN PRN Reason: Indigestion Diphenhydramine HCl (Diphenhydramine 50 Mg/Ml Sdv) 25 mg IVPUSH Q6H PRN PRN Reason: pruritis Ephedrine Sulfate (Ephedrine 50 Mg/Ml Sdv) 5 mg IVPUSH ASDIRECTED PRN PRN Reason: Hypotension Fentanyl (Fentanyl 100 Mcg/2 Ml Sdv) 100 mcg EPIDUR Q3H PRN PRN Reason: Pain Fentanyl/Bupivacaine HCl (Bupivacaine/Fentanyl/Ns 100 Ml Bag) 100 ml EPIDUR ASDIRECTED PRN PRN Reason: Pain Lactated Ringer's (Ringers, Lactated) 1,000 mls @ 100 mls/hr IV ASDIRECTED LUIS Last Admin: 05/30/21 15:28 Dose: 100 mls/hr Documented by: POLA Oxytocin/Lactated Ringer's (Pitocin In Lr 10 Units/1,000 Ml) 10 unit in 1,000 mls @ 500 mls/hr IV .CONTINUOUS LUIS Oxytocin/Lactated Ringer's (Pitocin In Lr 10 Units/1,000 Ml) 10 unit in 1,000 mls @ 12 mls/hr IV TITRATE LUIS; Protocol Last Admin: 05/30/21 15:28 Dose: 2 munits/min, 12 mls/hr Documented by: POLA Nalbuphine HCl (Nalbuphine 10 Mg/1 Ml Vial) 10 mg IVPUSH Q2H PRN PRN Reason: Pain Ondansetron HCl (Ondansetron 4 Mg/2 Ml Sdv) 4 mg IVPUSH Q4H PRN PRN Reason: Nausea/Vomiting Sodium Chloride (Sodium Chloride 0.9% 10 Ml Syringe) 10 ml FLUSH ASDIRECTED PRN PRN Reason: Keep Vein Open Assessment/Plan Comment:: 1. Jessica Martines" is a 31-year-old 5 para 2-1-1-3 female at 38-0/7 weeks gestational age with an YOUSUF of 06/13/2021 admitted at midday on 05/30/2021 in active early labor with progression of cervical dilation. 2. Group B strep negative 3. Patient desires epidural in labor 4. History of low plateletslast evaluation 124,000 5. History of miscarriage x1 6 Covid positive during in September 2020no residual effects 7. Anemia on ferrous sulfate 8. Increased distance from the hospital 9. Gestational diabetes well controlled with diet alone Plan: 1. Admit for labor 2. Epidural as needed 3. Covid evaluation, RPR, CBC upon admission 4. Intermittent electronic monitoring 5. Anticipate 6. Plans to breast-feed.
--- NOTE | 2021-05-30 23:28 | PCM.SN.2 ---
- Free Text/Narrative Note: Delivery note: Stage I: Jessica Martines" is a 31-year-old 5 now para 3-1-1-4 female at 38-0/7 weeks gestational age with an YOUSUF of 06/13/2021 admitted at midday on 05/30/2021 in active early labor with progression of cervical dilation. Shortly after delivery patient reported a small gush of fluid and was confirmed to have rupture membranes. She did not leak a lot however but progressed into an active labor pattern and achieved cervical dilation of approximately 4+ centimeters. At that time epidural was placed for labor analgesia. It was noted that she had it for bag present which was ruptured. With this and continued increase in Pitocin augmentation patient progressed rapidly to complete cervical dilation by approximately 20 to 50 hours on 05/30/2021. Amniotic fluid was clear, heart tones were normal labor pattern was appropriate. Stage II: Kitty delivered a viable, cortez, male infant with Apgars of 8 and 9, a weight of 3410 g (7 pounds 8.7 ounces) and a length of 21.0 inches in a direct occiput anterior position over an intact perineum at 2304 hrs. on 05/30/2021. The baby was placed on mom's abdomen and was warmed with a blanket with nose and mouth bulb suction. Pitocin was increased to 500 cc's an hour to facilitate increase in uterine tone and decrease likelihood of bleeding. The cord is allowed to pulsate for approximately 3 minutes and then was clamped x2 and cut by the baby's Father Durga. Umbilical cord had 3 vessels. Cord blood was obtained. No suturing was required. Stage III: The placenta delivered at 2308 hrs. in a Jenkins presentation, appeared intact and complete and was discarded per patient desire. Estimated blood loss was 100 cc. Patient plans to breast-feed. Condition: Good.
[2021-05-31] MEDS ORDERED: Acetaminophen 325 MG Tab PO PRN
[2021-05-31] MEDS ORDERED: Docusate Sodium 100 MG Cap PO PRN
[2021-05-31] MEDS ORDERED: Benzocaine/Menthol 20%-0.5% Spray 56 GM Canister TOP PRN
[2021-05-31] MEDS ORDERED: Witch Hazel Medicated Pads 40/Jar TOP PRN
[2021-05-31] MEDS: Ibuprofen 600 MG Tab PO PRN ×4 (00:29→19:41)
[2021-05-31] MEDS: Prenatal Multivitamin with Calcium/Folic Acid/Iron Tab PO SCH (08:31)
--- NOTE | 2021-05-31 12:14 | PCM.SN.2 ---
- Free Text/Narrative Note: note: Patient is doing well in the period. Minimal lochia, voiding well, ambulated without problems. Nursing without concerns. Patient is afebrile, vital signs are stable Abdomen is flat, soft, uterus is below the umbilicus and is firm and nontender. Legs are nontender. Assessment: recovery going well. Plan: Routine care. Patient be discharged home within the next 24-48 hours.
--- NOTE | 2021-05-31 18:54 | PCM48HPAN ---
Post Anesthesia Note - EVALUATION WITHIN 48HRS OF ANESTHETIC Vital Signs in Normal Range: Yes Patient Participated in Evaluation: Yes Respiratory Function Stable: Yes Airway Patent: Yes Cardiovascular Function Stable: Yes Hydration Status Stable: Yes Pain Control Satisfactory: Yes Nausea and Vomiting Control Satisfactory: Yes Mental Status Recovered: Yes Vital Signs: Last Vital Signs Temp 98.1 F 05/31/21 15:29 Pulse 65 05/31/21 15:29 Resp 17 05/31/21 15:29 BP 109/63 05/31/21 15:29 Pulse Ox 98 05/31/21 15:29 - COMMENTS/OBSERVATIONS Free Text/Narrative:: Minimal back soreness at this time. No apparent anesthesia complications noted.
--- NOTE | 2021-06-01 03:51 | PCM.DCSUM1 ---
Discharge Summary - Hospital Course Free Text/Narrative:: Stage I: Jessica Martines" is a 31-year-old 5 now para 3-1-1-4 female at 38-0/7 weeks gestational age with an YOUSUF of 06/13/2021 admitted at midday on 05/30/2021 in active early labor with progression of cervical dilation. Shortly after delivery patient reported a small gush of fluid and was confirmed to have rupture membranes. She did not leak a lot however but progressed into an active labor pattern and achieved cervical dilation of approximately 4+ centimeters. At that time epidural was placed for labor analgesia. It was noted that she had it for bag present which was ruptured. With this and continued increase in Pitocin augmentation patient progressed rapidly to complete cervical dilation by approximately 20 to 50 hours on 05/30/2021. Amniotic fluid was clear, heart tones were normal labor pattern was appropriate. Stage II: Kitty delivered a viable, cortez, male with Apgars of 8 and 9, a weight of 3410 g (7 pounds 8.7 ounces) and a length of 21.0 inches in a direct occiput anterior position over an intact perineum at 2304 hrs. on 05/30/2021. The baby was placed on mom's abdomen and was warmed with a blanket with nose and mouth bulb suction. Pitocin was increased to 500 cc's an hour to facilitate increase in uterine tone and decrease likelihood of bleeding. The cord is allowed to pulsate for approximately 3 minutes and then was clamped x2 and cut by the baby's Father Durga. Umbilical cord had 3 vessels. Cord blood was obtained. No suturing was required. Stage III: The placenta delivered at 2308 hrs. in a Jenkins presentation, appeared intact and complete and was discarded per patient desire. Estimated blood loss was 100 cc. Patient plans to breast-feed. patient has done very well. She has normal lochia, is breast-feeding without problems, ambulating well and is voiding without concerns. She is desiring discharge home. Condition: Good. Diagnosis: Stroke: No - Discharge Data Discharge Date: 06/01/21 Discharge Disposition: Home, Self-Care 01 Condition: Good - Referral to Home Health Primary Care Physician: Grant Aguilar MD - Discharge Diagnosis/Problem(s) (1) 38 weeks gestation of SNOMED Code(s): 54541644 ICD Code: Z3A.38 - 38 WEEKS GESTATION OF Status: Acute Current Visit: Yes (2) History of pre-eclampsia SNOMED Code(s): 917794987192019 ICD Code: Z87.59 - PERSONAL HISTORY OF COMP OF PREG, CHLDBRTH AND THE PUERP Status: Acute Current Visit: Yes (3) History of delivery SNOMED Code(s): 687038224 ICD Code: Z87.51 - PERSONAL HISTORY OF PRE-TERM LABOR Status: Acute Current Visit: Yes (4) Thrombocytopenia SNOMED Code(s): 329784355 ICD Code: D69.6 - THROMBOCYTOPENIA, UNSPECIFIED Status: Acute Current Visit: Yes - Patient Instructions Diet: Regular Diet as Tolerated (Nursing diet with increased calories and calcium as recommended) Activity: As Tolerated (No intercourse or tampons until bleeding resolves) Driving: May Drive Today Showering/Bathing: May Shower (May take a bath) Notify Provider of: Fever, Increased Pain, Swelling and Redness, Nausea and/or Vomiting - Discharge Plan Home Medications: Home Meds Ascorbic Acid [Vitamin C] 1,000 mg PO DAILY 11/02/19 [History] Ferrous Sulfate [Iron] 325 mg PO DAILY 11/02/19 [History] Vits #93/Iron Fum/FA [ Formula Tablet] 1 tab PO DAILY 11/02/19 [History] Acetaminophen [Tylenol] 650 mg PO Q4H PRN tablet 06/01/21 [Rx] Ibuprofen [Motrin] 600 mg PO Q4H PRN tablet 06/01/21 [Rx] Referrals: Grant Aguilar MD [Primary Care Provider] - (Return to clinicDr. [facility]ilar2 weeks.) - Discharge Summary/Plan Comment DC Time >30 min.: No Discharge Summary/Plan Comment: Discharge instructions: 1. Discharge home 2. Diet, activity and follow-up discussed with patient. Recommend nursing diet with increased calories and calcium. 3. Precautions given concern increased pain, bleeding, temperature, signs/symptoms of DVT/PE. 4. Medications per home medication was printed, discussed with and given to the patient. 5. Return to clinic-Dr. Aguilar-[facility] in 2 weeks. Diagnosis: Term -delivered Condition: Good - Patient Data Vitals - Most Recent: Last Vital Signs Temp 37.2 C 05/31/21 19:44 Pulse 82 05/31/21 19:44 Resp 14 05/31/21 19:44 BP 110/68 05/31/21 19:44 Pulse Ox 99 05/31/21 19:44 Weight - Most Recent: 75.432 kg I&O - Last 24 hours: Intake & Output 05/31/21 05/31/21 06/01/21 14:59 22:59 06:59 Intake Total 120 330 Balance 120 330 Med Orders - Current: Current Medications Acetaminophen (Acetaminophen 325 Mg Tab) 650 mg PO Q4H PRN PRN Reason: mild pain or fever Benzocaine/Menthol (Benzocaine/Menthol 20%-0.5% Gibson 56 Gm Canister) 0 gm TOP ASDIRECTED PRN PRN Reason: Perineal Comfort Measure Last Admin: 05/31/21 00:29 Dose: 1 canister Documented by: Docusate Sodium (Docusate Sodium 100 Mg Cap) 100 mg PO BID PRN PRN Reason: Constipation Last Admin: 05/31/21 08:31 Dose: 100 mg Documented by: Ibuprofen (Ibuprofen 600 Mg Tab) 600 mg PO Q4H PRN PRN Reason: Mild pain or fever Last Admin: 05/31/21 19:41 Dose: 600 mg Documented by: Prenat Multivit/Pacific/Iron/Folic Ac ( Multivitamin With Calcium/Folic Acid/Iron Tab) 1 each PO DAILY LUIS Last Admin: 05/31/21 08:31 Dose: 1 each Documented by: Sadia Nice (Sadia Nice Medicated Pads 40/Jar) 1 pad TOP ASDIRECTED PRN PRN Reason: Perineal Comfort Measure Last Admin: 05/31/21 00:28 Dose: 1 tub Documented by: Discontinued Medications Calcium Carbonate/Glycine (Calcium Carbonate 500 Mg Tab.Chew) 1,000 mg PO Q2H PRN PRN Reason: Indigestion Diphenhydramine HCl (Diphenhydramine 50 Mg/Ml Sdv) 25 mg IVPUSH Q6H PRN PRN Reason: pruritis Ephedrine Sulfate (Ephedrine 50 Mg/Ml Sdv) 5 mg IVPUSH ASDIRECTED PRN PRN Reason: Hypotension Fentanyl (Fentanyl 100 Mcg/2 Ml Sdv) 100 mcg EPIDUR Q3H PRN PRN Reason: Pain Last Admin: 05/30/21 19:45 Dose: 100 mcg Documented by: Fentanyl/Bupivacaine HCl (Bupivacaine/Fentanyl/Ns 100 Ml Bag) 100 ml EPIDUR ASDIRECTED PRN PRN Reason: Pain Last Admin: 05/30/21 19:46 Dose: 100 ml Documented by: Lactated Ringer's (Ringers, Lactated) 1,000 mls @ 100 mls/hr IV ASDIRECTED LUIS Last Admin: 05/30/21 20:55 Dose: 100 mls/hr Documented by: Oxytocin/Lactated Ringer's (Pitocin In Lr 10 Units/1,000 Ml) 10 unit in 1,000 mls @ 500 mls/hr IV .CONTINUOUS LUIS Oxytocin/Lactated Ringer's (Pitocin In Lr 10 Units/1,000 Ml) 10 unit in 1,000 mls @ 12 mls/hr IV TITRATE LUIS; Protocol Last Titration: 05/30/21 21:32 Dose: 14 munits/min, 84 mls/hr Documented by: Lidocaine/Epinephrine (Lidocaine 1.5% With Epinephrine 1:200,000 5 Ml Amp) 5 ml .ROUTE .[facility] ONE Stop: 05/30/21 14:01 Nalbuphine HCl (Nalbuphine 10 Mg/1 Ml Vial) 10 mg IVPUSH Q2H PRN PRN Reason: Pain Ondansetron HCl (Ondansetron 4 Mg/2 Ml Sdv) 4 mg IVPUSH Q4H PRN PRN Reason: Nausea/Vomiting Sodium Chloride (Sodium Chloride 0.9% 10 Ml Syringe) 10 ml FLUSH ASDIRECTED PRN PRN Reason: Keep Vein Open
[2021-06-01] MEDS: Prenatal Multivitamin with Calcium/Folic Acid/Iron Tab PO SCH (08:41)
== END 2021-06-01 08:55 | disposition home or self-care (01) | DRG 807 ==
LOC: JD.OB 09:09 → JD.OBCHECK 09:09 → JD.OB 10:54 → OBSVTOIN 23:04 → JD.OB 23:05
PROVIDERS: ADMIT Obstetrics & Gynecology; ATTEND Obstetrics & Gynecology
PROC: 10E0XZZ Delivery of Products of Conception, External Approach (ICD-10-PCS; principal; 2021-05-30)
PROC: 10907ZC Drainage of Amniotic Fluid, Therapeutic from Products of Conception, Via Natural or Artificial Opening (ICD-10-PCS; 2021-05-30)
PROC: 3E0R3BZ Introduction of Anesthetic Agent into Spinal Canal, Percutaneous Approach (ICD-10-PCS; 2021-05-30)
DX: O99.12 Other diseases of the blood and blood-forming organs and certain disorders involving the immune mechanism complicating childbirth (principal); Z37.0 Single live birth; D69.6 Thrombocytopenia, unspecified; Z3A.38 38 weeks gestation of pregnancy; Z79.82 Long term (current) use of aspirin; O99.02 Anemia complicating childbirth; D64.9 Anemia, unspecified; O24.420 Gestational diabetes mellitus in childbirth, diet controlled; Z20.822 Contact with and (suspected) exposure to COVID-19
CPT/HCPCS: 01967; 36415; 51702; 59025; 59409; 85025; 86592; 86850; 86900; 86901; A9270-GY; J2590; J3010; J7120; U0002

== ENCOUNTER 2022-07-15 22:15 | Inpatient (IN) | payer OTHER ==
[2022-07-15] MEDS: Lactated Ringers 1,000 ML IV SCH ×2 (22:29→23:59)
[2022-07-15] MEDS ORDERED: fentaNYL 100 MCG/2 ML SDV ONE (22:39)
[2022-07-15] MEDS ORDERED: Lactated Ringers 1,000 ML ONE (22:39)
[2022-07-15] MEDS ORDERED: Bupivacaine/fentaNYL/NS 100 ML Bag ONE (22:39)
[2022-07-15] MEDS ORDERED: Calcium Carbonate 500 MG Tab.Chew PO PRN (23:11)
[2022-07-15] MEDS ORDERED: Ondansetron 4 MG/2 ML SDV IVPUSH PRN (23:11)
[2022-07-15] MEDS ORDERED: Lidocaine 1% 50 ML MDV INJECT PRN (23:11)
[2022-07-15] MEDS ORDERED: Acetaminophen 325 MG Tab PO PRN (23:11)
[2022-07-15] MEDS ORDERED: Nalbuphine HCl 10 MG/ 1ML Amp IVPUSH PRN (23:11)
[2022-07-15] MEDS ORDERED: Oxytocin/Lactated Ringers 10 UNIT/1,000 ML BAG IV SCH ×2 (23:15)
[2022-07-15] MEDS ORDERED: Bupivacaine/fentaNYL/NS 100 ML Bag EPIDUR PRN (23:38)
[2022-07-15] MEDS ORDERED: ePHEDrine 50 MG/ML SDV IVPUSH PRN (23:38)
[2022-07-15] MEDS ORDERED: diphenhydrAMINE 50 MG/ML SDV IVPUSH PRN (23:38)
[2022-07-15] MEDS ORDERED: fentaNYL 100 MCG/2 ML SDV EPIDUR PRN (23:38)
[2022-07-16] MEDS ORDERED: Bupivacaine 0.25% 10 ML SDV ONE
[2022-07-16] MEDS ORDERED: Oxytocin 10 Units/1 ML SDV ONE (00:59)
[2022-07-16] MEDS ORDERED: Oxytocin 10 Units/1 ML SDV IM ONE (01:04)
[2022-07-16] MEDS ORDERED: Docusate Sodium 100 MG Cap PO PRN (01:47)
[2022-07-16] MEDS ORDERED: Witch Hazel Medicated Pads 40/Jar TOP PRN (01:47)
[2022-07-16] MEDS ORDERED: Benzocaine/Menthol 20%-0.5% Spray 78 GM Cannister TOP PRN (01:47)
[2022-07-16] MEDS: Ibuprofen 600 MG Tab PO PRN ×2 (07:50→20:13)
== END 2022-07-17 10:25 | disposition home or self-care (01) | DRG 807 ==
LOC: JD.OB 22:15 → JD.OBCHECK 22:15 → JD.OB 23:11 → OBSVTOIN 07-16 01:07 → JD.OB 07-16 03:44
PROVIDERS: ADMIT Obstetrics & Gynecology; ATTEND Obstetrics & Gynecology
PROC: 10E0XZZ Delivery of Products of Conception, External Approach (ICD-10-PCS; principal; 2022-07-16)
PROC: 3E0R3BZ Introduction of Anesthetic Agent into Spinal Canal, Percutaneous Approach (ICD-10-PCS; 2022-07-16)
DX: O24.420 Gestational diabetes mellitus in childbirth, diet controlled (principal); Z37.0 Single live birth; Z3A.38 38 weeks gestation of pregnancy
CPT/HCPCS: 36415; 59025; 59409; 85025; 86592; 86850; 86900; 86901; A9270-GY; J2590; J3010; J3490; J7120